=== PATIENT | female | born 1985 | race Caucasian/White ===

== ENCOUNTER 2024-05-08 12:29 | Outpatient (CLI) | payer BC | END 2024-05-08 23:59 | disposition home or self-care (01) | LOC: MRI02 12:29 | PROVIDERS: ATTEND Family Medicine Sports Medicine | DX: M51.17 Intervertebral disc disorders with radiculopathy, lumbosacral region (principal); M47.27 Other spondylosis with radiculopathy, lumbosacral region; M48.07 Spinal stenosis, lumbosacral region | CPT/HCPCS: 72148 ==